=== PATIENT | male | born 1940 | race Caucasian/White ===

== ENCOUNTER 2017-03-29 12:54 | Outpatient (CLI) | payer MEDICARE, OTHER ==
[~2017-03-29 12:54] MED LIST: Iopamidol 370 76% 100 ML VIAL ONE
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
== END 2017-03-29 12:55 | disposition home or self-care (01) ==
LOC: MADRAD 12:54
PROVIDERS: ATTEND Otolaryngology Plastic Surgery within the Head & Neck
DX: J38.00 Paralysis of vocal cords and larynx, unspecified (principal); G51.0 Bell's palsy; J39.2 Other diseases of pharynx; I25.10 Atherosclerotic heart disease of native coronary artery without angina pectoris; H74.8X1 Other specified disorders of right middle ear and mastoid
CPT/HCPCS: 36415; 70491; 82565